=== PATIENT | female | born 1965 | race Caucasian/White ===

== ENCOUNTER 2016-12-07 18:28 | Emergency (ER) | payer SELFPAY ==
[2016-12-07 18:44] VITALS: BP 147/97; PULSE 100; RESP 20; TEMP 97; O2SAT 99
[2016-12-07] MEDS ORDERED: LORAZEPAM 0.5 MG TAB PO ONE (19:25)
[2016-12-07] MEDS ORDERED: GABAPENTIN 300 MG CAP PO ONE (19:26)
[2016-12-07] MEDS ORDERED: LORAZEPAM 0.5 MG TAB ONE (19:35)
[2016-12-07] MEDS ORDERED: GABAPENTIN 300 MG CAP ONE (19:36)
== END 2016-12-07 19:45 | disposition home or self-care (01) | DRG 880 ==
LOC: ED 18:28
DX: F41.9 Anxiety disorder, unspecified (principal)
CPT/HCPCS: 99282

== ENCOUNTER 2016-12-10 19:49 | Emergency (ER) | payer SELFPAY ==
[2016-12-10 20:08] VITALS: RESP 18; TEMP 98.6
[2016-12-10] MEDS ORDERED: PREDNISONE 20 MG TAB PO ONE (20:24)
[2016-12-10] MEDS ORDERED: PREDNISONE 20 MG TAB ONE (20:26)
[2016-12-10 22:05] VITALS: BP 134/94; PULSE 96; O2SAT 95
== END 2016-12-10 20:35 | disposition home or self-care (01) | DRG 93 ==
LOC: ED 19:49
DX: G89.29 Other chronic pain (principal); M54.2 Cervicalgia; M54.9 Dorsalgia, unspecified; M79.602 Pain in left arm
CPT/HCPCS: 99282

== ENCOUNTER 2016-12-16 17:12 | Emergency (ER) | payer SELFPAY ==
[2016-12-16 17:12] VITALS: O2SAT 95
[2016-12-16 19:51] VITALS: BP 164/98; PULSE 87; RESP 22; TEMP 98.2
== END 2016-12-16 19:34 | disposition home or self-care (01) | DRG 880 ==
LOC: ED 17:12
DX: F41.9 Anxiety disorder, unspecified (principal); M54.2 Cervicalgia
CPT/HCPCS: 99282; 99283